=== PATIENT | male | born 1975 | race Caucasian/White ===

== ENCOUNTER → 2017-01-14 | Outpatient (CLI) | payer OTHER ==
--- NOTE | 2017-01-14 10:32 | XR ---
EXAMINATION TYPE: 3 views lumbar spine. 4 view sacrum and coccyx. 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 FINDINGS: Lumbar spine: 5 lumbar type vertebral bodies. There is facet degenerative change lower lumbar spine. There is mild to moderate disc interspace narrowing from L3 through S1 levels with corresponding endplate spondylos is. Superior endplate Schmorl's node at L4. Vertebral body heights are preserved. Alignment is mainta ined. Sacrum coccyx: The SI joints appear symmetric and intact. Arcuate lines of the sacrum are smooth and continuous. No displaced or angulated sacrococcygeal fracture seen. IMPRESSION: 1. Lumbar spine: Mild to moderate degenerative disc disease from L3 through S1 levels. Corresponding mild facet arthropathy. No vertebral compression collapse or malalignment. 2. Sacrum and coccyx: No displaced or angulated fracture seen.
== END | disposition home or self-care (01) ==
LOC: RADXRMAIN 09:57
PROVIDERS: ATTEND Family Medicine
DX: M51.37 Other intervertebral disc degeneration, lumbosacral region (principal); M46.86 Other specified inflammatory spondylopathies, lumbar region
CPT/HCPCS: 72100; 72220

== ENCOUNTER → 2017-01-21 | Outpatient (CLI) | payer OTHER ==
[2017-01-21 08:17] LABS: Basophils % (A) 1 %; CH 28.7; CHCM 33.7; Eosinophils # (A) 0.2 k/uL (0-0.7); Eosinophils % (A) 3 %; HDW 2.49; HGB 15.7 gm/dL (13.0-17.5); Luc # (Auto) 0.22; Luc % (Auto) 3; Lymphocytes # (A) 2.1 k/uL (1.0-4.8); Lymphocytes % (A) 31 %; MCH 27.9 pg (25.0-35.0); MCHC 32.7 g/dL (31.0-37.0); MCV 85.5 fL (80.0-100.0); Mean Platelet Volume 6.9; Monocytes # (A) 0.4 k/uL (0-1.0); Monocytes % (A) 6 %; Neutrophils # (A) 3.7 k/uL (1.3-7.7); Neutrophils % (A) 56 %; RBC 5.62 m/uL (4.30-5.90); RDW 12.6 % (11.5-15.5); WBC 6.6 k/uL (3.8-10.6); WBC (Perox) 6.93
[2017-01-21 08:30] LABS: ALT 73 U/L (21-72); AST 48 U/L (17-59); Alkaline Phosphatase 71 U/L (38-126); Anion Gap 11 mmol/L; Blood Urea Nitrogen 12 mg/dL (9-20); Carbon Dioxide 29 mmol/L (22-30); Chloride 103 mmol/L (98-107); Cholesterol 226 mg/dL (<200); Glucose 101 mg/dL (74-99); HDL Cholesterol 43 mg/dL (40-60); Non-African American GFR(MDRD) >60 (>60 ml/min/1.73 sqM); Potassium 4.7 mmol/L (3.5-5.1); Sodium 143 mmol/L (137-145); Total Bilirubin 0.9 mg/dL (0.2-1.3); Triglycerides 221 mg/dL (<150)
== END | disposition home or self-care (01) ==
LOC: LABWHC1 07:47
PROVIDERS: ATTEND Family Medicine
DX: I10 Essential (primary) hypertension (principal)
CPT/HCPCS: 36415; 80053; 80061; 84439; 84443; 85025

== ENCOUNTER → 2017-01-24 | Outpatient (CLI) | payer BC ==
--- NOTE | 2017-01-25 08:25 | MR ---
EXAMINATION TYPE: MR ahuja/lc wo con DATE OF EXAM: 01/24/2017 8:39 PM COMPARISON: 09/17/2015 HISTORY: Neck pain, hx of syrinx, LBP into buttocks and back of calves Multiplanar MultiSpin echo imaging of the cervical spine was performed. C2-C3: No evidence for degenerative disc disease. No disc bulge/herniation or protrusion. No Canal stenosis. Foramina are patent bilaterally. C3-C4: No evidence for degenerative disc disease. No disc bulge/herniation or protrusion. No Canal stenosis. Foramina are patent bilaterally. C4-C5: Moderate disc desiccation noted. No significant disc bulging or herniation. No central stenosi s. At the C5 level there is a 1.3 cm x 4 mm elongated area of increased signal within the cervical sp inal cord which may reflect prominence of the central canal or a small stable syrinx. C5-C6: Moderate disc desiccation noted. Circumferential disc bulge with effacement of the ventral the chase sac. No evidence for cord contact or central stenosis. Degenerative change of the cervical apophy seal joints of left foraminal encroachment. C6-C7: Moderate disc desiccation. Right paracentral disc bulge with mild effacement ventral thecal sa c. No central stenosis or bouchra herniation. Mild right foraminal encroachment. C7-T1: No evidence for degenerative disc disease. No disc bulge/herniation or protrusion. No Canal stenosis. Foramina are patent bilaterally. Cervical segments are intact. There is normal alignment. Cervical spinal cord is of normal signal. Craniovertebral junction relationships are within normal limits. IMPRESSION: 1. Stable cervical spinal cord syrinx versus prominence of the central canal. 2. Degenerative disc disease with varying degrees of disc bulging and foraminal encroachment. EXAMINATION TYPE: MR lackey wo con DATE OF EXAM: 01/24/2017 8:39 PM COMPARISON: 09/17/2015 HISTORY: Neck pain, hx of syrinx, LBP into buttocks and back of calves Multiplanar, MultiSpin echo imaging of the lumbar spine was performed. L1-L2: Normal disc appearance without desiccation. No herniation, protrusion or disc bulging. No ca nal stenosis is present. Foramina are patent bilaterally. L2-L3: Normal disc appearance without desiccation. No herniation, protrusion or disc bulging. No ca nal stenosis is present. Foramina are patent bilaterally. L3-L4: Mild disc desiccation is noted. Mild posterior disc bulge. No evidence for disc herniation or protrusion. No central stenosis. Foramina are patent bilaterally. L4-L5: Moderate disc desiccation noted. Circumferential disc bulge with effacement of the ventral the chase sac. No evidence for bouchra herniation or central stenosis. Mild bilateral foraminal encroachment. Schmorl node formation superior and inferior endplate of L4. L5-S1: Moderate disc desiccation. Extruded disc herniation with sequestered component posteriorly arash trally and towards the left measuring approximately 10 mm in craniocaudal dimension. There is left la teral recess stenosis. Overall appearance is unchanged. Lumbar segments are intact. No paraspinal masses are identified. Conus medullaris has a normal appe arance. IMPRESSION: 1. Degenerative disc disease as discussed. 2. Extruded disc herniation L5-S1 with left lateral recess stenosis as discussed above.
== END | disposition home or self-care (01) ==
LOC: RADMRIMAIN 19:29
PROVIDERS: ATTEND Family Medicine
DX: M48.06 Spinal stenosis, lumbar region (principal); M51.16 Intervertebral disc disorders with radiculopathy, lumbar region; M51.17 Intervertebral disc disorders with radiculopathy, lumbosacral region; M50.223 Other cervical disc displacement at C6-C7 level; M50.30 Other cervical disc degeneration, unspecified cervical region
CPT/HCPCS: 72141; 72148

== ENCOUNTER 2023-09-25 09:33 | Day surgery (SDC) | payer BC, OTHER ==
[2023-09-24 09:13] VITALS: BMI 29.5
[~2023-09-25 09:33] MED LIST: LACTATED RINGERS 1,000 ML IV SCH; LIDOCAINE 1% (10MG/ML) FOR IV START INTRADERMA PRN
[2023-09-25 11:36] VITALS: RESP 16; TEMP 97.1
[2023-09-25] MEDS ORDERED: LIDOCAINE 1% INJ 10MG/ML (20 ML MDV) ONE (11:59)
[2023-09-25] MEDS ORDERED: PROPOFOL 10 MG/ML 20 ML VIAL IV ONE (11:59)
--- NOTE | 2023-09-25 12:15 | P.PCN ---
Date of Procedure: 09/25/23 Procedure(s) Performed: BRIEF HISTORY: Patient is a 47-year-old pleasant white male scheduled for an elective colonoscopy as a part of screening for colon cancer. PROCEDURE PERFORMED: Colonoscopy. PREOPERATIVE DIAGNOSIS: Screening for colon cancer. IV sedation per Anesthesia. PROCEDURE: After informed consent was obtained, the patient, was brought into the endoscopy unit. IV sedation was administered by Anesthesia under continuous monitoring. Digital rectal examination was normal. Initially the Olympus CF-160 flexible video colonoscope was then inserted in the rectum, gradually advanced into the cecum without any difficulty. Careful examination was performed as the scope was gradually being withdrawn. Ileocecal valve and the appendiceal orifice were visualized and appeared normal. Prep was excellent. Mucosa of the cecum, ascending colon, transverse colon, descending colon, sigmoid colon, and rectum appeared normal. Retroflexion was performed in the rectum and no lesions were seen. The patient tolerated the procedure well. IMPRESSION: Normal-appearing colon from rectum to cecum with no evidence of colorectal neoplasia. RECOMMENDATIONS: Findings of this examination were discussed with the patient as well as his family. He was advised to have a repeat screening colonoscopy in 10 years..
[2023-09-25 12:59] VITALS: BP 134/84; PULSE 60
== END 2023-09-25 12:55 | disposition home or self-care (01) ==
LOC: ORWHC2ENDO 09:33
PROVIDERS: ATTEND Internal Medicine Gastroenterology
DX: Z12.11 Encounter for screening for malignant neoplasm of colon (principal); I10 Essential (primary) hypertension; E78.5 Hyperlipidemia, unspecified; K21.9 Gastro-esophageal reflux disease without esophagitis; Z79.899 Other long term (current) drug therapy
CPT/HCPCS: 45378; J2001; J2704